=== PATIENT | male | born 1980 | race Caucasian/White ===

== ENCOUNTER 2022-01-29 08:22 | Emergency (ER) | payer OTHER ==
--- NOTE | 2022-01-29 08:33 | ED Physician Documentation ---
PD HPI ABD PAIN - Stated complaint Stated Complaint: ABD PX - History obtained from History obtained from: Patient - History of Present Illness Timing - onset: How many hours ago (3 1/2) Timing - duration: Hours (3 1/2) Timing - details: Abrupt onset (at 5 am, with right abd to flank pain, consistent and severe.) Quality: Aching, Pain Location: RLQ Radiation: Right flank Improved by: No: Eating, Laying still, Position, Meds (tried tylenol at home) Worsened by: No: Moving, Breathing Associated symptoms: Nausea, Loss of appetite. No: Fever, Vomiting, Diarrhea, Constipation, Dysuria Similar symptoms before: Has not had sx before Recently seen: Not recently seen Review of Systems Constitutional: denies: Fever, Chills Nose: denies: Rhinorrhea / runny nose, Congestion Throat: denies: Sore throat Respiratory: denies: Cough GI: reports: Abdominal Pain, Nausea. denies: Abdominal Swelling, Vomiting, Constipation, Diarrhea : denies: Dysuria, Frequency Neurologic: denies: Focal weakness, Numbness, Near syncope PD PAST MEDICAL HISTORY - Past Medical History Cardiovascular: None Respiratory: None Endocrine/Autoimmune: None - Present Medications Home Medications: Ambulatory Orders Medication Instructions Recorded Confirmed Ibuprofen [Motrin] 600 mg PO TID PRN #20 tab 01/29/22 Ondansetron Odt [Zofran] 4 mg TL Q6H PRN #10 tablet 01/29/22 Oxycodone HCl/Acetaminophen 1 each PO Q6H PRN #14 tablet 01/29/22 [Percocet 5-325 mg Tablet] - Allergies Allergies/Adverse Reactions: Allergies Allergy/AdvReac Type Severity Reaction Status Date / Time No Known Drug Allergies Allergy Verified 01/29/22 08:31 PD ED PE NORMAL - Vitals Vital signs reviewed: Yes - General General: Alert and oriented X 3, Well developed/nourished, Other (appears in considerable pain) - Neck Neck: Supple, no meningeal sign, No adenopathy - Cardiac Cardiac: RRR, No murmur - Respiratory Respiratory: Clear bilaterally - Abdomen Abdomen: Normal bowel sounds, Soft, Non distended, No organomegaly, Other (some tenderness right mid abd but not notably. No percussion nor rebound tenderness. ) - Male Male : Other (no inguinal nor umbilical hernias. Scrotum without swelling/tender. ) - Back Back: Other (some right CVA tender.) - Derm Derm: Normal color, Warm and dry - Neuro Neuro: Alert and oriented X 3, No motor deficit, Normal speech Results - Vitals Vitals: Vital Signs - 24 hr 01/29/22 01/29/22 01/29/22 08:25 10:33 11:24 Temperature 37.0 C Heart Rate 92 109 H 77 Respiratory 18 18 17 Rate Blood Pressure 109/77 138/89 H 141/96 H O2 Saturation 100 100 94 Oxygen O2 Source Room air - Labs Labs: Laboratory Tests 01/29/22 01/29/22 01/29/22 08:41 08:41 10:14 WBC 11.0 H RBC 5.20 Hgb 15.3 Hct 45.3 MCV 87.1 MCH 29.4 MCHC 33.8 RDW 12.4 Plt Count 254 MPV 11.1 Neut # (Auto) 7.7 H Lymph # (Auto) 2.5 [place] # (Auto) 0.6 Eos # (Auto) 0.1 Baso # (Auto) 0.0 Absolute Nucleated RBC 0.00 Nucleated RBC % 0.0 Sodium 139 Potassium 3.4 L Chloride 104 Carbon Dioxide 21 Anion Gap 14.0 H BUN 18 Creatinine 1.1 Estimated GFR (MDRD) 75 L Glucose 137 H Calcium 9.8 Total Bilirubin 0.6 AST 53 H ALT 52 Alkaline Phosphatase 86 Total Protein 8.1 Albumin 4.5 Globulin 3.6 Albumin/Globulin Ratio 1.3 Lipase 34 Urine Color YELLOW Urine Clarity CLEAR Urine pH 8.5 H Ur Specific [place] 1.020 Urine Protein NEGATIVE Urine Glucose (UA) NEGATIVE Urine Ketones NEGATIVE Urine Occult Blood LARGE H Urine Nitrite NEGATIVE Urine Bilirubin NEGATIVE Urine Urobilinogen 0.2 (NORMAL) Ur Leukocyte Esterase NEGATIVE Urine RBC 11-25 H Urine WBC 0-3 Ur Squamous Epith Cells NONE SEEN Urine Bacteria Few Ur Microscopic Review INDICATED Urine Culture Comments NOT INDICATED - Rads (name of study) abd/pelvis CT Radiology: Prelim report reviewed (4 mm ureteral stone near bladder right side, with moderate hydronephrosis. ), See rad report PD MEDICAL DECISION MAKING - ED course Complexity details: reviewed results, re-evaluated patient (he is much improved with just mild pain after IV medications.), considered differential (symptoms c/w kidney stone, but has not had them prior, and in considerable pain. Can get imaging to ensure size and location. ), d/w patient Departure - Departure Disposition: 01 Home, Self Care Clinical Impression: Right sided abdominal pain, Ureterolithiasis Condition: Stable Record reviewed to determine appropriate education?: Yes Instructions: ED Stone Renal W Colic Follow-Up: [facility] [Provider Group] Prescriptions: Ibuprofen [Motrin] 600 mg PO TID PRN #20 tab PRN Reason: Pain Oxycodone HCl/Acetaminophen [Percocet 5-325 mg Tablet] 1 each PO Q6H PRN #14 tablet PRN Reason: pain Ondansetron Odt [Zofran] 4 mg TL Q6H PRN #10 tablet PRN Reason: Nausea / Vomiting Comments: You have a small kidney stone in the lower part of the right ureter almost to the bladder which is causing your pain acutely. It is 4 mm in size and this is typically passable over a few days. Hopefully it will pass even later today. Stay well-hydrated. Light activity is okay. Use anti-inflammatory of ibuprofen 3 times a day with food for the next several days to week until better. Also ondansetron if needed for nausea. Add Tylenol every 4-6 hours if needed for pain still. Alternatively use oxycodone/acetaminophen for worse pain. [facility]. I would anticipate improvement over the next couple of days. Follow-up with your primary care if not better over the next 3 to 5 days. Return to the ER if worse despite medicines. I am prescribing a short course of narcotic pain medication for you. These are potentially dangerous and addictive medications that should be used carefully. These medications may constipate you. Take an [id number] stool softener such as docusate twice daily with plenty of water while taking these medications. If you go 24 hours without a bowel movement, take [id number] MiraLAX, per package instructions. Do not drink or drive while taking these medications. If you received narcotic or sedating medications while in the emergency department do not drive for 24 hours. Store this medication in a safe, secure place and out of reach of children. It is a violation of federal law to give or sell this medication to another person or to use in a manner other than prescribed. The ED will not refill narcotic prescriptions, including prescriptions lost or stolen. You can dispose of unwanted medications at the [facility] office or at several pharmacies such as [facility]. Forms: Activity restrictions Discharge Date/Time: 01/29/22 11:44
[2022-01-29] MEDS ORDERED: KETOROLAC 30 MG/ML VIAL IVP STA (08:44)
[2022-01-29] MEDS ORDERED: SODIUM CHLORIDE 0.9% 1,000 ML IV STA (08:44)
[2022-01-29] MEDS ORDERED: HYDROmorphone 1 MG/ML CARPUJECT IVP STA ×2 (08:44→11:00)
[2022-01-29] MEDS ORDERED: ONDANSETRON 4 MG/2 ML VIAL IVP STA (08:44)
[2022-01-29 08:50] LABS: BASOPHILS % (AUTO) 0.4 %; EOSINOPHILS # (AUTO) 0.1 10^3/uL (0.0-0.7); EOSINOPHILS % (AUTO) 0.6 %; HCT - HEMATOCRIT 45.3 % (42.0-52.0); HGB - HEMOGLOBIN 15.3 g/dL (14.0-18.0); LYMPHOCYTES # (AUTO) 2.5 10^3/uL (1.5-3.5); LYMPHOCYTES % (AUTO) 23.1 %; MEAN CORPUSCULAR HEMOGLOBIN 29.4 pg (27.0-31.0); MEAN CORPUSCULAR HGB CONC 33.8 g/dL (32.0-36.0); MEAN CORPUSCULAR VOLUME 87.1 fL (80.0-94.0); MEAN PLATELET VOLUME 11.1 fL (7.4-11.4); MONOCYTES # (AUTO) 0.6 10^3/uL (0.0-1.0); MONOCYTES % (AUTO) 5.4 %; NEUTROPHILS # (AUTO) 7.7 10^3/uL (1.5-6.6); NEUTROPHILS % (AUTO) 70.2 %; PLT - PLATELET COUNT 254 10^3/uL (130-450); RED CELL DISTRIBUTION WIDTH 12.4 % (12.0-15.0)
[2022-01-29 09:03] LABS: ALBUMIN 4.5 g/dL (3.2-5.5); ALBUMIN/GLOBULIN RATIO 1.3 (1.0-2.2); BILIRUBIN,TOTAL 0.6 mg/dL (0.2-1.0); CALCIUM 9.8 mg/dL (8.5-10.3); CREATININE 1.1 mg/dL (0.6-1.2); POTASSIUM 3.4 mmol/L (3.5-5.0); TOTAL PROTEIN 8.1 g/dL (6.7-8.2)
[2022-01-29] MEDS ORDERED: IOVERSOL 320 100 ML VIAL IVP ONE ×2 (10:21→10:44)
[2022-01-29 10:24] LABS: BILIRUBIN,URINE NEGATIVE (NEGATIVE); GLUCOSE, URINE (UA) NEGATIVE (NEGATIVE); KETONES,URINE (UA) NEGATIVE (NEGATIVE); LEUKOCYTE ESTERASE, URINE NEGATIVE (NEGATIVE); NITRITE,URINE NEGATIVE (NEGATIVE); OCCULT BLOOD,URINE LARGE (NEGATIVE); PH,URINE 8.5 PH (5.0-7.5); PROTEIN,URINE NEGATIVE (NEGATIVE); UROBILINOGEN,URINE 0.2 (NORMAL) E.U./dL (NORMAL)
[2022-01-29 10:26] LABS: CLARITY,URINE CLEAR (CLEAR)
[2022-01-29 10:40] LABS: BACTERIA,URINE Few /HPF (None Seen); SQUAMOUS EPITHELIAL CELL,UR NONE SEEN (<= Few); WBC,URINE 0-3 /HPF (0-3)
--- NOTE | 2022-01-29 10:46 | CT Report ---
PROCEDURE: CT abdomen pelvis with contrast INDICATIONS: Acute right flank pain CONTRAST: IV CONTRAST: Optiray 320 ml: 100 PO CONTRAST: *NO PO CONTRAST TECHNIQUE: After the administration of contrast, 5 mm thick sections acquired from the diaphragms to the sym physis. 5 mm thick coronal and sagittal reformats were acquired. For radiation dose reduction, the following was used: automated exposure control, adjustment of mA and/or kV according to patient size . COMPARISON: None. FINDINGS: Lower thorax: The lung bases are clear. Heart size normal. No hiatal hernia. Liver: Liver shows diffusely decreased attenuation without focal mass lesion. Biliary system: No calcified cholelithiasis or pericholecystic inflammation. No evidence of bile du ct dilatation. Pancreas: Unremarkable without mass or inflammation evident. Spleen: Normal in size and density. Adrenals: Normal morphology and density. Reproductive system: Unremarkable as visualized. Urinary system: 4 mm calculus at the right ureterovesical junction results in moderate right hydronep hrosis and hydroureter. Mild right delayed renal enhancement and perinephric edema present as well. L eft kidney and collecting system unremarkable. Urinary bladder unremarkable. Gastrointestinal system: The bowel appears unremarkable with no evidence of bowel obstruction or inf lammation. The stomach appears unremarkable. Appendix: No findings to suggest acute appendicitis. Peritoneal spaces: No mesenteric or retroperitoneal adenopathy. No free air. No free fluid. Vasculature: The IVC, aorta and iliac vasculature are unremarkable. Musculoskeletal: Normal bone mineralization. No acute fractures. Tiny periumbilical ventral hernia contains fat without bowel involvement. IMPRESSION: 1. Right-sided moderate hydronephrosis results from a 4 mm calculus at the right ureterovesical junct ion 2. Incidental hepatic fatty infiltration and small umbilical ventral hernia Reviewed by: Abdiel Valverde MD on 01/29/2022 9:45 AM TORRIE Approved by: Abdiel Valverde MD on 01/29/2022 9:45 AM AKDT Station ID: [id number]
[2022-01-29] MEDS ORDERED: DEXAMETHASONE 10 MG/ML VIAL IVP STA (11:00)
[2022-01-29 11:24] VITALS: BP 141/96
== END 2022-01-29 11:44 | disposition home or self-care (01) ==
LOC: ED 08:22
DX: N20.1 Calculus of ureter (principal)
CPT/HCPCS: 36415; 74177; 80053; 81001; 83690; 85025; 96374; 96375; 99284; 99285; J1170; Q9967; 81003; 87086